=== PATIENT | female | born 1940 | race Caucasian/White ===

== ENCOUNTER 2017-01-20 06:07 | Inpatient (IN) ==
[2017-01-20] MEDS ORDERED: Lidocaine -MPF 1% 2 ML VIAL ID ONE (06:27)
[2017-01-20] MEDS ORDERED: Ringers Solution, Lactated 1,000 ML IVC SCH (06:30)
--- NOTE | 2017-01-20 07:20 | Anesthesia Evaluation PreOp ---
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 Any Significant HX Other Medical History: Denies Any Significant HX, Other (Metabolic syndrome) Anesthesia History: No Prior Anesthetic Complications, Past Anesthesia (GB) : No Alcohol Use: none Drug use: none Medications and Allergies ALPRAZolam [Xanax 1 MG Tablet] 1 mg PO HS 09/19/15 [History] Lovastatin 40 mg PO DAILY 09/19/15 [History] Metoprolol [Lopressor] 25 mg PO BID 09/19/15 [History] hydroCHLOROthiazide [Hydrochlorothiazide] 25 mg PO DAILY 09/19/15 [History] Azithromycin [Zithromax] 250 mg PO Q24H #5 tablet 04/30/16 [Rx] Cefuroxime PO [Ceftin] 500 mg PO Q12HR #10 tablet 04/30/16 [Rx] HYDROcodone/Acet 5/325 mg [[place] 5-325 mg] 1 tab PO Q4H PRN #20 tab 04/30/16 [Rx ] Lactobacillus [Culturelle] 1 each PO BID #10 cap.sprink 04/30/16 [Rx] Loratadine [Claritin] 10 mg PO DAILY PRN #0 04/30/16 [Rx] Allergies codeine Allergy (Verified 09/19/15 11:55) Palpitations - Meds/Allergy Pre-op Review Medications Reviewed: Yes Allergies Reviewed: Yes Beta Blockers on Current Med List: Yes If Beta Blockers taken, Date/Time (Last Dose taken): 05:45 01/20/2017 Anesthesia Results - Labs Laboratory Tests 04/28/16 10/12/16 01/14/17 11:06 08:22 09:57 WBC 7.1 Hgb 14.3 Hct 43.0 Plt Count 264 INR 1.2 Sodium Potassium Chloride Carbon Dioxide BUN 22 H Creatinine 0.79 01/14/17 09:57 WBC Hgb Hct Plt Count INR Sodium 141 Potassium 3.9 Chloride 101 Carbon Dioxide 34 H BUN Creatinine - Imaging EKG: image reviewed (SR, OLAMIDE) Anesthesia Exam O2 Sat Height 1.57 m Weight 60.781 kg O2 Sat by Pulse Oximetry 96 Vital Signs Temp Pulse Resp BP Pulse Ox 97.4 F L 57 16 103/63 96 01/20/17 06:44 01/20/17 06:44 01/20/17 06:44 01/20/17 06:44 01/20/17 06:44 Height: 5'2'' Weight: 134# NPO (# of Hours): > 8 hrs Pain Scale: 0 Pain Scale Used: Numeric (1 - 10) - HEENT Pupil (Motor): Pupils equal, EOMI Mallampati: II Teeth: Edentulous Denture Type: Upper: Complete, Lower: Complete Oral Opening: Greater than 3 - HYDROGEN PLANT OPERATOR LOC: Oriented HYDROGEN PLANT OPERATOR Motor: Normal RUE, Normal LUE, Normal RLE, Normal LLE, Normal Face HYDROGEN PLANT OPERATOR Sensory: Normal: RUE, LUE, RLE, LLE, Face - Cardiac Rhythm: Regular Murmur: None JVD: No Carotid Bruit: No - Pulmonary Breath Sounds: bilateral Clear Respiratory Effort: Symmetrical Anesthesia Assess/Plan ASA Score: 2 Modified Vashti Scale for Level of Consciousness: Cooperative, oriented, and tranquil Anesthetic Plan: General Autologous Blood: Yes Monitoring Plan: Standard Monitors Recovery Plan: PACU
[2017-01-20] MEDS ORDERED: *HR* FentaNYL (PF) 100 MCG/2 ML VIAL ONE (07:23)
[2017-01-20] MEDS ORDERED: *HR* Midazolam HCl 2 MG/2 ML VIAL ONE (07:23)
[2017-01-20] MEDS ORDERED: *HR* Succinylcholine 200 MG/10 ML VIAL IVP ONE (07:23)
[2017-01-20] MEDS ORDERED: Lidocaine -MPF 2% 2 ML VIAL ONE (07:23)
[2017-01-20] MEDS ORDERED: Neostigmine Methylsulfate 3 MG/3 ML SYRINGE ONE (07:23)
[2017-01-20] MEDS ORDERED: *HR* Propofol 200 MG/20 ML VIAL IVP ONE (07:23)
[2017-01-20] MEDS ORDERED: *HR* Phenylephrine 10 MG/ML VIAL ONE (07:23)
[2017-01-20] MEDS ORDERED: Ondansetron 4 MG/2 ML VIAL ONE ×2 (07:23→12:55)
[2017-01-20] MEDS ORDERED: Dexamethasone 4 MG/ML VIAL ONE ×2 (07:23→12:55)
[2017-01-20] MEDS ORDERED: Ketorolac 30 MG/ML VIAL ONE (07:23)
[2017-01-20] MEDS ORDERED: Lidocaine -MPF 4% 5 ML AMPUL ONE (07:23)
[2017-01-20] MEDS ORDERED: *HR* Rocuronium Bromide 50 MG/5 ML VIAL ONE ×2 (07:23→12:55)
[2017-01-20] MEDS ORDERED: Lidocaine/EPI 1:100k 1% 50 ML VIAL INFILT ONE (07:30)
[2017-01-20] MEDS ORDERED: Bupivacaine/EPI 1:200k 0.5%PF 30 ML VIAL ONE (07:30)
[2017-01-20] MEDS ORDERED: Lidocaine/EPI 1:200k 1% PF 10 ML VIAL ONE ×2 (07:48→08:17)
--- NOTE | 2017-01-20 07:51 | History & Physical Report ---
Date of Encounter: 01/20/17 Time of Encounter: 07:50 24 Hour HP Update - Instructions Instructions: If the History and Physical is less than 30 days old and was completed prior to A.M. admission and or procedure and has NOT been updated on calendar day of procedure please complete this update prior to performing procedure. - Update Patient reports changes in Medical Condition: No Changes in examination, assessment, or condition: No Changes in Medication: No Preop tests/diagnostics Reviewed: Yes Surgery Remains Indicated: Yes Consent for Planned Operative Procedure(s) Verified: Yes - Pre-Operative Checklist Preoperative Checklist Indicated: Yes Prophylactic Antibiotic Ordered: Yes Home Medications Include Beta Emily: Yes Beta Emily Taken Today (Day of Surgery): Yes Beta Emily Taken Yesterday (Day Prior to Surgery): Yes Is VTE Prophylaxis Indicated?: Yes
[2017-01-20] MEDS: CeFAZolin Pre 2,000 MG/100 ML 2,000 MG/100 ML BAG IVPB ONE ×2 (07:58→12:00)
[2017-01-20] MEDS ORDERED: EPHEDrine 50 MG/ML VIAL ONE ×2 (08:10→15:46)
[2017-01-20] MEDS ORDERED: *HR* Promethazine 25 MG/ML VIAL IVP PRN (08:33)
[2017-01-20] MEDS ORDERED: *HR* HYDROmorphone (PF) 1 MG/ML SYRINGE IVP PRN (08:33)
[2017-01-20] MEDS ORDERED: *HR* HYDROmorphone 2 MG/ML SYRINGE ONE ×2 (08:43→15:09)
--- NOTE | 2017-01-20 15:16 | Operative Note ---
Date of procedure: 01/20/17 Pre-op diagnosis: Right ureteral reimplant Post-op diagnosis: same Procedure: Right ureteral reimplantation. Implants: 19 [place] Nando drain. 6 [place] by 24 cm double-J stent. Henry catheter. Complications: none Anesthesia: BAILEEA Surgeon: Bar Sutton Estimated blood loss (cc): 200 Specimen: right distal ureter Condition: stable Disposition: PACU Procedure in Detail: Indications: Ms. Enriquez is a 76-year-old woman who underwent a hysterectomy today. During the surgery there is concern for ureteral injury. Dr. Ramírez was first available and entered the operating room. He performed a cystoscopy and bilateral retrograde pyelogram. There was no extravasation seen along the left ureter. However, the right ureter showed evidence of extravasation with inability to pass an open-ended catheter. With this an emergent right ureteral reimplantation was performed. This was an emergency surgery and therefore informed consent was not able to be obtained. The family was notified. Procedure in detail: Mrs. Enriquez was already anesthetized on the operating room table. Her abdomen was prepped and draped in usual sterile fashion. A lower midline incision was then made. The subcutaneous tissues were dissected down using large cautery. The fascia was identified and incised with the cautery. A finger was placed underneath the fascia and the fascia was opened down to the pubic symphysis. The peritoneum was identified and grasped with DeBakey forceps. It was then opened purposefully using Metzenbaum scissors. There was no evidence of bowel injury below. The peritoneum was opened fully. The Bookwalter retractor was inserted and the bowel was packed into the upper abdomen to expose the pelvis. The peritoneum was then opened where the previous dissection was performed. The ureter was identified below the peritoneum and was distended with urine. It was dissected down distally until its cut edge was identified. This was completely transected. The ureter was then freed up and retracted superiorly. The gonadal vessels were identified and dissected away from the ureter. The distal ureter was cut freshly using the Mehta scissors. The ureter was then spatulated. The bladder was then distended. Along the dome of the bladder stay sutures were applied using 2-0 Vicryl suture. The peritoneum over top of the dome of the bladder was then opened using cautery and I dissected down to the urothelium. The urothelium was opened. Stay sutures were placed using 5-0 Vicryl into the apices of the cystotomy. The ureter was then sewed down to the bladder using interrupted 5-0 Vicryl suture. A 6 Bolivian by 24 cm double-J stent was placed. The muscle was draped over top of the ureter with interrupted 4-0 Vicryl sutures after the anastomosis was completed. The peritoneum over top of the dowm of the bladder was sewn back together using interrupted 2-0 Vicryl suture. The bladder was distended. There is no evidence of leak. A 19 [place] Nando drain was placed into the right lower quadrant through a prior laparoscopy port. This was sewn to the skin using a 2-0 nylon suture. The fascia was then closed using a looped PDS in a running fashion. The abdomen was irrigated. The skin was closed using anju. Dry sterile dressing was applied. Ms. Enriquez was then awakened from general anesthesia by the [facility] condition. All sponge, needle, and instrument counts were correct.
--- NOTE | 2017-01-20 17:15 | Anesthesia Evaluation Post Op ---
Date of Encounter: 01/20/17 Time of Encounter: 17:14 - Vital Signs Vital Signs: Vital Signs/O2 Sat, Most Current Temp Pulse Resp BP Pulse Ox 97.0 F L 50 10 117/66 98 01/20/17 16:40 01/20/17 17:00 01/20/17 17:00 01/20/17 17:00 01/20/17 17:00 - Lungs Lungs: Clear Ascult./Percussion - Airway Airway: Non-obstructed - Cardiovascular Regular Rate - Mental Status Mental Status: Alert & Oriented, Answers Appropriately - Pain Pain Scale: 4 Pain Scale used: Numeric (1 - 10) - Nausea Vomiting Nausea Vomiting: Not Present - Hydration Hydration: NPO, Henry catheter - Discharge PostOp Status: Transfer Patient to floor
[2017-01-20] MEDS ORDERED: Loratadine 10 MG TABLET PO PRN (17:45)
[2017-01-20] MEDS ORDERED: Naloxone 0.4 MG/ML INJ IVP PRN (17:45)
[2017-01-20] MEDS ORDERED: *HR* HYDROmorphone 2 MG/ML SYRINGE IVP PRN (17:45)
[2017-01-20] MEDS ORDERED: Ondansetron 4 MG/2 ML VIAL IVP PRN (17:45)
[2017-01-20] MEDS ORDERED: ALPRAZolam 1 MG TABLET PO PRN (17:45)
--- NOTE | 2017-01-20 18:20 | OB/GYN Procedure Note ---
Hysterectomy - Diagnosis Date of procedure: 01/20/17 Hysterectomy pre-op: chronic pelvic pain, stress incontinence, symptomatic leiomyomata Post-op diagnosis: same - Procedure Hysterectomy procedure: lap assisted vaginal hysterectomy, bilateral salpingo- oophorectomy, other (Tvt with perforation of left bladder, transection of right ureter, with reimplantation) Surgeon: Gentry Harmon Coil Assembler: Lisa Knox Anesthesia Type: General Estimated blood loss (cc): 200 Complications: none Fluids: crystalloid Specimens: right ovary, uterus, cervix, left ovary, right fallopian tube, left fallopian tube, myoma Findings: Enlarged fibroid uterus Disposition: PACU Narrative: Patient is 76-year-old female with large pelvic fibroid uterus and stress urine incontinence. She presents for laparoscopic-assisted vaginal hysterectomy and tension-free vaginal taping. She is aware of operative risks including possible risk of injury to bowel bladder or other internal organs such as ureters and signed appropriate consent. Description of procedure: Patient was taken operating room where general anesthesia was administered. She was prepped and draped in usual sterile fashion bladder was drained of clear urine. She was placed in low dorsal lithotomy position. 60 mL of dilute local were injected behind the symphysis pubis just to the left and right the midline. Mid urethral portion of the anterior vaginal wall was identified and 60 mL of dilute local were injected along the submucosal region minus symphysis pubis in the left and right. 2 stab wounds were made in the abdominal injection sites. Made a small incision along the anterior vaginal wall at the mid urethral site and dissected under the submucosal regions up behind the symphysis pubis on the left and right. Placing a 30 mL balloon with guidewire patient's bladder was deflected towards her left side. Using a gloved hand in the vagina introduced the advantage fit tension-free vaginal taping needle through the suburethral incision brought out the right lower quadrant incision. I then deflected the patient's bladder towards her right side that looked in the vagina introduced the needle through the suburethral incision brought up to the floor quadrant incision. Catheter was removed cystoscopy was performed and it was noted that the tension-free needle was through the lateral portion of the bladder. The needle was removed and the bladder was drained. I deflected the patient's bladder again towards her right side and again the tension-free of vaginal tape needle was introduced through the suburethral incision brought up to the left lower quadrant incision. Catheter was again removed cystoscopy was performed and there was no evidence of further bladder trauma. Ureteral jets were noted bilaterally. This point we proceeded with the hysterectomy. Scalpel was used to make a small incision to the umbilicus. A 5 mm trochars introduced and patient was placed in Trendelenburg position. A 5 mm trochars placed in the left midline and another 5 mm trochars placed to the right and midline. Uterus was visualized and was noted to be enlarged with fibroid extending off the right aspect of the uterus. The ovaries were small vascular suture to the ovaries from the infundibulopelvic ligament was somewhat dilated. The left fallopian tube was pulled towards the midline in the left infundibulopelvic ligament was transected with LigaSure. Then transected the round ligament on the left side with LigaSure the broad ligament was skeletonized anteriorly and posteriorly and the uterine vessels were cauterized with LigaSure. I developed the bladder flap on the lower uterine segment. I then pulled the right fallopian tubes towards the right in the infundibulopelvic ligament was cauterized and transected the ureters appeared to be out of the operative field. I then used a ligature across the into the round ligament on the right. The right broad ligament was skeletonized anteriorly and posteriorly and the uterine vessels were cauterized. This point willing to the vaginal portion of the procedure. The cervix was injected with 1% lidocaine circumferentially and circumferential incision was made. Anterior the anterior and posterior cul-de-sac sharply. Curved Venu clamps are taken crust uterosacral ligaments on each side these were transected and ligated with 0 Vicryl suture. Curved Venu clamps were then taken across the lower cardinal ligaments on each side these 2 were transected and ligated with 0 Vicryl suture. Cervix was pulled down over the uterus was quite enlarged. Cervix and fibroid on the lower uterine segment more morcellated and a was then able to remove the fundus left fallopian tube and left ovary and right ovary. There is no evidence of internal bleeding. Vaginal cuff was run with 0 Vicryl in a running lock stitch. Anterior and posterior vaginal cuffs were then reapproximated with 0 Vicryl running lock stitch. Hemostasis was ensured. Again performed cystoscopy at this point I did appear to see some urine flow by could not directly see the ureteral jets. 10 mL of indigo carmine were injected and again I cannot see any flow. At this point a consult with urology and performed retrograde pyelograms did show patent left ureter but showed obstruction of right ureter. Noted was, normal by urology that the ureteral orifices were not somewhat abnormal location up on the bladder neck. At this point after Dr. Ramírez performed the pyelograms Dr. Sutton proceeded to perform the reimplantation of the right ureter with david cystotomy. It was advised that because we would have to reposition the the bladder that the TVT needles be removed and they were removed. I did assist Dr. Sutton and performing his portion of the procedure. Please see his operative note for details on this part of the procedure. Atenolol procedure all sponge needle and instrument counts are correct.
[2017-01-20] MEDS: Ringers Solution, Lactated 1,000 ML IVC SCH ×3 (19:48→22:33)
[2017-01-20] MEDS ORDERED: Metoprolol 100 MG TABLET PO SCH (21:00)
[2017-01-21 00:31] LABS: Basophils % 0.1 %; Hematocrit 39.5 % (35.3-44.9); Hemoglobin 13.3 g/dL (11.5-15.4); Immature Granulocytes % 0.3 % (0-4); Lymphocytes # 1.3 K/mcL (0.6-4.6); Lymphocytes % 6.8 %; Mean Corpuscular HGB Conc 33.7 g/dL (31.6-35.5); Mean Corpuscular Hemoglobin 30.5 pg (28.0-33.3); Mean Corpuscular Volume 90.6 fL (83.0-100.0); Mean Platelet Volume 10.6 fL (9.4-12.4); Monocytes # 1.4 K/mcL (0.0-1.3); Monocytes % 7.1 %; Neutrophils # 16.5 K/mcL (1.6-8.9); Nucleated Red Blood Cells 0.1 /100 WBC (0); Platelet Count 309 K/mcL (140-400); Red Blood Count 4.36 M/mcL (3.82-4.97); Red Cell Distribution Width 12.7 % (11.5-14.5); Segmented Neutrophils % 85.7 %
[2017-01-21] MEDS ORDERED: Furosemide 20 MG/2 ML VIAL IVP ONE ×2 (01:33→04:53)
[2017-01-21] MEDS: Ringers Solution, Lactated 1,000 ML IVC SCH (02:14)
[2017-01-21] MEDS: Famotidine 20 MG TABLET PO SCH ×3 (05:48→21:12)
[2017-01-21 06:05] LABS: BUN/Creatinine Ratio 21 (6-26); Blood Urea Nitrogen 22 mg/dL (7-20); Calcium 8.4 mg/dL (8.6-10.8); Carbon Dioxide 29 mEq/L (19-29); Chloride 100 mEq/L (98-109); Glucose 128 mg/dL (70-99); Osmolality,Calculated 283 (280-300); Potassium 4.1 mEq/L (3.5-4.5); Sodium 134 mEq/L (136-145); eGFR For African Americans > 60 (> 60); eGFR For Non-African Americans 51 (> 60)
[2017-01-21] MEDS: *HR* HYDROcodone/Acet 5/325 mg TABLET PO PRN ×4 (08:12→21:12)
--- NOTE | 2017-01-21 08:33 | Urology Progress Note ---
Date of Encounter: 01/21/17 Time of Encounter: 08:30 - Assessment and Plan (1) Right ureteral injury Current Visit: Yes Status: Acute Assessment and plan: 76-year-old woman status post hysterectomy with resulting right ureteral injury and right ureteral reimplantation. Postoperative day #1. Her urine output has been low overnight. JAMAAL output was 102 mL overnight. I will send the JAMAAL for creatinine. I will check a KUB today to confirm that the stent is in good position. I will also check a renal and bladder ultrasound to identify for any evidence of hydronephrosis. I think that she is likely third spacing given the length of the surgery yesterday. Her urine output does seem to be improving over the last hour. Continue with IV fluids. Clear liquids are okay for now. We' ll continue the Henry catheter and JAMAAL drain. Qualifiers: Qualified Code(s): S37.10XA - Unspecified injury of ureter, initial encounter Progress Note Narrative: Postoperative day #1 status post hysterectomy with iatrogenic right ureteral injury and right ureteral reimplant. She was oliguric overnight. Her pain has been adequately controlled. Her JAMAAL output was 102 mL overnight. She reports passing flatus. Her urine output appears to be improving in the last 1-2 hours. Objective Initial Vital Signs Temp Pulse Resp BP Pulse Ox 97.4 F L 57 16 103/63 96 01/20/17 06:44 01/20/17 06:44 01/20/17 06:44 01/20/17 06:44 01/20/17 06:44 - General physical appearance Present: well developed, well nourished, no distress - Respiratory Present: normal respiratory effort - Abdomen Present: soft (Incision dressing with shadowing. JAMAAL with serosanguionous fluid. ) - Genitourinary Present: normal external genitalia Urine Appearance: Present: Hematuria (Light pink urine) - Labs 01/21/17 00:25 01/21/17 05:25 Diabetes panel 01/21/17 Range/Units 05:25 Sodium 134 L (136-145) mEq/L Potassium 4.1 (3.5-4.5) mEq/L Chloride 100 (98-109) mEq/L Carbon Dioxide 29 (19-29) mEq/L BUN 22 H (7-20) mg/dL Creatinine 1.05 (0.57-1.11) mg/dL Glucose 128 H (70-99) mg/dL Calcium 8.4 L (8.6-10.8) mg/dL Calcium panel 01/21/17 Range/Units 05:25 Calcium 8.4 L (8.6-10.8) mg/dL Pituitary panel 01/21/17 Range/Units 05:25 Sodium 134 L (136-145) mEq/L Potassium 4.1 (3.5-4.5) mEq/L Chloride 100 (98-109) mEq/L Carbon Dioxide 29 (19-29) mEq/L BUN 22 H (7-20) mg/dL Creatinine 1.05 (0.57-1.11) mg/dL Glucose 128 H (70-99) mg/dL Calcium 8.4 L (8.6-10.8) mg/dL Adrenal panel 01/21/17 Range/Units 05:25 Sodium 134 L (136-145) mEq/L Potassium 4.1 (3.5-4.5) mEq/L Chloride 100 (98-109) mEq/L Carbon Dioxide 29 (19-29) mEq/L BUN 22 H (7-20) mg/dL Creatinine 1.05 (0.57-1.11) mg/dL Glucose 128 H (70-99) mg/dL Calcium 8.4 L (8.6-10.8) mg/dL - VTE Documentation of Mechanical Device: Intermittent pneumatic compression device Consult Discharge Plan - Plan Referrals: Fang Brown MD [Primary Care Provider] -
--- NOTE | 2017-01-21 09:11 | OB/GYN Progress Note ---
Date of Encounter: 01/21/17 Time of Encounter: 09:09 - Assessment and Plan (1) Status post laparoscopic assisted vaginal hysterectomy Current Visit: Yes Status: Acute Patient's postop day 1 status post a prescription assisted vaginal hysterectomy and TVT with iatrogenic ureteral injury requiring neocystostomy and removal TVT mesh. She overall looks good however did have some what low urine output overnight that is picking up this morning. She has responded to increased IV fluid bolus and Lasix with improved urine output this morning. It was her labs did and clinically she looks good. This point we will leave catheter and JAMAAL drain in place. Dr. Sutton is following. (2) Low urine output Current Visit: Yes Status: Acute Seems to be responding to fluid bolus and Lasix. Patient did have quite long surgery yesterday and may have third space some the fluid. Dr. Sutton is checking the JAMAAL drain creatinine and plans KUB to check stent placement. Subjective - Subjective Principal diagnosis: POD # 1 s/p LAVH with Iatrogeni rt ureteral injury with resultant neocystot Interval history: Patient overall looks good today with minimal pain and was taking oral liquids without nausea and vomiting. She does report small amount of flatus. Has been concern of decreased urine output overnight that has picked up this morning. She does have a fair amount of serosanguineous JAMAAL drainage. Objective - Vital Signs Vital Signs: Vital Signs Temp Pulse Resp BP Pulse Ox 01/21/17 08:00 97.9 F 68 16 91/47 96 01/21/17 04:30 98 F 72 20 88/51 96 01/21/17 01:30 98.2 F 82 20 94/56 93 01/20/17 23:37 98.4 F 82 18 93/53 92 01/20/17 20:45 98.3 F 68 14 115/63 96 01/20/17 19:36 99.2 F 64 22 115/63 95 01/20/17 18:15 97.2 F L 59 16 129/71 99 01/20/17 17:45 97.2 F L 56 16 115/64 99 01/20/17 17:20 57 12 128/77 98 01/20/17 17:10 98.8 F 56 12 114/79 98 01/20/17 17:00 50 10 117/66 98 01/20/17 16:50 50 9 115/66 100 01/20/17 16:40 97.0 F L 51 10 127/64 100 01/20/17 16:30 52 10 131/65 100 01/20/17 16:20 52 10 146/73 100 01/20/17 16:10 96.4 F L 61 10 153/72 98 Intake and Output 01/20/17 01/21/17 01/21/17 23:59 07:59 15:59 Intake Total 1100 / 1100 2000 / 2000 550 / 550 Output Total 240 / 240 160 / 160 145 / 145 Balance 860 / 860 1840 / 1840 405 / 405 Intake: IV Fluids 1100 / 1100 1400 / 1400 Lactated Ringers 1,000 ML 1100 / 1100 1400 / 1400 @ 150 mls/hr IVC .[id number] [facility] Rx#:[id number] Oral 600 / 600 550 / 550 Output: Urine Urethral (Henry) Catheter 125 / 125 44 / 44 145 / 145 Wound Drainage 85 / 85 102 / 102 Right Abdomen 85 / 85 102 / 102 Other: Weight 66.2 kg Patient Weight 01/21/17 23:59 Weight 66.2 kg - Exam Auscultation: bilateral: crackles/rales (Bibasilar) Abdomen: Present: soft, other (Appropriate tenderness, Dressen's and tacked there is some staining on the right side likely runoff from the JAMAAL drain) - Labs Labs: Abnormal lab results WBC 19.2 K/mcL (4.3-11.1) H D 01/21/17 00:25 Neutrophils # 16.5 K/mcL (1.6-8.9) H 01/21/17 00:25 Monocytes # 1.4 K/mcL (0.0-1.3) H 01/21/17 00:25 Nucleated RBCs/100 WBC 0.1 /100 WBC (0) H 01/21/17 00:25 Sodium 134 mEq/L (136-145) L 01/21/17 05:25 BUN 22 mg/dL (7-20) H 01/21/17 05:25 Est GFR (Non-Af Amer) 51 (> 60) L 01/21/17 05:25 Glucose 128 mg/dL (70-99) H 01/21/17 05:25 Calcium 8.4 mg/dL (8.6-10.8) L 01/21/17 05:25
--- NOTE | 2017-01-21 12:42 | Operative Note ---
Date of procedure: 01/20/17 Pre-op diagnosis: possbile ureteral injufy Post-op diagnosis: other (right ureteral injury) Procedure: cystoscopy. Bilateral retrograde pyelograms Anesthesia: GETA Surgeon: Evaristo Ramírez Estimated blood loss (cc): 0 Condition: stable Disposition: PACU Procedure in Detail: On my arrival to the room the patient was already intubated and in dorsal lithotomy. we moved the patient down on the table to allow for c -arm and retrograde pyelograms. The patient had 3 lap ports were still in place. TVT sling had been passed and the trochars were removed but the sling was not completely pulled into position. A 21-[place] rigid cystoscope was inserted into the bladder without difficulty. Systematic examination of bladder revealed moderate trabeculations. Some erythematous areas but a grossly intact bladder. Identified the right ureteral orifice first. I had difficulty injecting contrast and was able to pass a zip wire through the 5 [place] but had significant medial deviation. Once the retrograde pyelogram was performed there was obvious extravasation of contrast and no continuation of contrast into the proximal ureter beyond 3 or 4 cm. This was public service representative of ureteral injury. The left ureteral orifice was cannulated using the 5-[place] ureteral Catheter and a retrograde pyelogram was performed using Isovue. No injury, hydroureter or other abnormality was noted. The catheter was replaced at this time and the case was turned over to Dr. Sutton and Dr. Harmon for surgical repair of the injury. I removed the TVT sling and packed the vagina because I felt mesh would increase risk for complications
[2017-01-21] MEDS: ALPRAZolam 1 MG TABLET PO PRN (21:14)
[2017-01-22] MEDS: Ringers Solution, Lactated 1,000 ML IVC SCH (02:21)
[2017-01-22 04:27] LABS: Hematocrit 31.7 % (35.3-44.9); Mean Corpuscular HGB Conc 32.8 g/dL (31.6-35.5); Mean Corpuscular Hemoglobin 30.4 pg (28.0-33.3); Mean Corpuscular Volume 92.7 fL (83.0-100.0); Mean Platelet Volume 10.9 fL (9.4-12.4); Platelet Count 206 K/mcL (140-400); Red Blood Count 3.42 M/mcL (3.82-4.97); Red Cell Distribution Width 13.1 % (11.5-14.5)
[2017-01-22 04:29] LABS: Hemoglobin 10.4 g/dL (11.5-15.4)
[2017-01-22 04:46] LABS: BUN/Creatinine Ratio 22 (6-26); Blood Urea Nitrogen 17 mg/dL (7-20); Calcium 7.9 mg/dL (8.6-10.8); Carbon Dioxide 30 mEq/L (19-29); Chloride 97 mEq/L (98-109); Glucose 100 mg/dL (70-99); Osmolality,Calculated 278 (280-300); Sodium 133 mEq/L (136-145); eGFR For African Americans > 60 (> 60); eGFR For Non-African Americans > 60 (> 60)
[2017-01-22 04:58] LABS: Potassium 3.2 mEq/L (3.5-4.5)
[2017-01-22] MEDS ORDERED: Potassium Effervescent 25 MEQ TABLET.EFF PO ONE (07:23)
--- NOTE | 2017-01-22 07:26 | OB/GYN Progress Note ---
Date of Encounter: 01/22/17 Time of Encounter: 07:24 - Assessment and Plan (1) Status post laparoscopic assisted vaginal hysterectomy Current Visit: Yes Status: Acute Patient's postop day 1 status post a prescription assisted vaginal hysterectomy and TVT with iatrogenic ureteral injury requiring neocystostomy and removal TVT mesh. She overall looks good however did have some what low urine output overnight that is picking up this morning. She has responded to increased IV fluid bolus and Lasix with improved urine output this morning. It was her labs did and clinically she looks good. This point we will leave catheter and JAMAAL drain in place. Dr. Sutton is following. 01/22- Doing well, pt seen with Dr Sutton. He plans to d/c ambriz today. Drain with minimal drainage, will likely d/c prior to d/c home. (2) Low urine output Current Visit: Yes Status: Acute Seems to be responding to fluid bolus and Lasix. Patient did have quite long surgery yesterday and may have third space some the fluid. Dr. Sutton is checking the JAMAAL drain creatinine and plans KUB to check stent placement. 01/22- resoloved, taking PO welll will p-lock IV (3) Hypokalemia Current Visit: No Status: Resolved Will give 50 of k-dur Subjective - Subjective Principal diagnosis: s/p hysterectomy and bso with rt ureteral injury and reimplantation Interval history: Doing well with good pain control. Drinking water but states not much appetite b/c of heartburn. No n/v. Objective - Vital Signs Vital Signs: Vital Signs Temp Pulse Resp BP Pulse Ox 01/22/17 04:28 92 01/22/17 03:05 98.5 F 68 18 98/54 95 01/21/17 23:25 98.6 F 72 18 96/54 96 01/21/17 20:00 98.3 F 70 18 120/56 95 01/21/17 17:45 99.4 F 74 16 137/67 95 01/21/17 12:30 98.6 F 68 16 104/49 98 01/21/17 08:00 97.9 F 68 16 91/47 96 Intake and Output 01/21/17 01/21/17 01/22/17 15:59 23:59 07:59 Intake Total 550 / 550 300 / 300 Output Total 745 / 745 710 / 710 1015 / 1015 Balance -195 / -195 -710 / -710 -715 / -715 Intake: Oral 550 / 550 300 / 300 Output: Catheter 745 / 745 575 / 575 1000 / 1000 Wound Drainage 135 / 135 15 / 15 Right Abdomen 135 / 135 - Exam Auscultation: bilateral: normal Abdomen: Present: soft, other (pos BS) Comments: Incision dry, appropriate abdominal tenderness - Labs Labs: Abnormal lab results WBC 13.7 K/mcL (4.3-11.1) H 01/22/17 03:48 RBC 3.42 M/mcL (3.82-4.97) L 01/22/17 03:48 Hgb 10.4 g/dL (11.5-15.4) L D 01/22/17 03:48 Hct 31.7 % (35.3-44.9) L 01/22/17 03:48 Neutrophils # 16.5 K/mcL (1.6-8.9) H 01/21/17 00:25 Monocytes # 1.4 K/mcL (0.0-1.3) H 01/21/17 00:25 Nucleated RBCs/100 WBC 0.1 /100 WBC (0) H 01/21/17 00:25 Sodium 133 mEq/L (136-145) L 01/22/17 03:48 Potassium 3.2 mEq/L (3.5-4.5) L 01/22/17 03:48 Chloride 97 mEq/L (98-109) L 01/22/17 03:48 Carbon Dioxide 30 mEq/L (19-29) H 01/22/17 03:48 Glucose 100 mg/dL (70-99) H 01/22/17 03:48 Calculated Osmolality 278 (280-300) L 01/22/17 03:48 Calcium 7.9 mg/dL (8.6-10.8) L 01/22/17 03:48
--- NOTE | 2017-01-22 07:50 | Urology Progress Note ---
Date of Encounter: 01/22/17 Time of Encounter: 07:48 - Assessment and Plan (1) Right ureteral injury Current Visit: Yes Status: Acute Assessment and plan: POD #2 s/p right ureteral reimplantation. 1. d/c ambriz today. 2. Continue JAMAAL for now. 3. Will monitor JAMAAL output and consider repeat JAMAAL creatinine if output increases. Qualifiers: Qualified Code(s): S37.10XA - Unspecified injury of ureter, initial encounter Progress Note Narrative: Postoperative day #2 status post right ureteral reimplantation. KUB yesterday showed good placement of her right ureteral stent. Ultrasound was reviewed which showed moderate hydronephrosis. Kidney function is normal. Urine output has improved. Objective Initial Vital Signs Temp Pulse Resp BP Pulse Ox 97.4 F L 57 16 103/63 96 01/20/17 06:44 01/20/17 06:44 01/20/17 06:44 01/20/17 06:44 01/20/17 06:44 - General physical appearance Present: well developed, well nourished, no distress - Respiratory Present: normal respiratory effort - Abdomen Present: soft, tender (appropriately tender, nd, JAMAAL is serous and scant.) - Genitourinary Present: normal external genitalia Urine Appearance: Present: Clear (Clear to light pink.) - Labs 01/22/17 03:48 01/22/17 03:48 Diabetes panel 01/22/17 Range/Units 03:48 Sodium 133 L (136-145) mEq/L Potassium 3.2 L (3.5-4.5) mEq/L Chloride 97 L (98-109) mEq/L Carbon Dioxide 30 H (19-29) mEq/L BUN 17 (7-20) mg/dL Creatinine 0.76 (0.57-1.11) mg/dL Glucose 100 H (70-99) mg/dL Calcium 7.9 L (8.6-10.8) mg/dL Calcium panel 01/22/17 Range/Units 03:48 Calcium 7.9 L (8.6-10.8) mg/dL Pituitary panel 01/22/17 Range/Units 03:48 Sodium 133 L (136-145) mEq/L Potassium 3.2 L (3.5-4.5) mEq/L Chloride 97 L (98-109) mEq/L Carbon Dioxide 30 H (19-29) mEq/L BUN 17 (7-20) mg/dL Creatinine 0.76 (0.57-1.11) mg/dL Glucose 100 H (70-99) mg/dL Calcium 7.9 L (8.6-10.8) mg/dL Adrenal panel 01/22/17 Range/Units 03:48 Sodium 133 L (136-145) mEq/L Potassium 3.2 L (3.5-4.5) mEq/L Chloride 97 L (98-109) mEq/L Carbon Dioxide 30 H (19-29) mEq/L BUN 17 (7-20) mg/dL Creatinine 0.76 (0.57-1.11) mg/dL Glucose 100 H (70-99) mg/dL Calcium 7.9 L (8.6-10.8) mg/dL - VTE Documentation of Mechanical Device: Intermittent pneumatic compression device Consult Discharge Plan - Plan Referrals: Fang Brown MD [Primary Care Provider] -
[2017-01-22] MEDS: *HR* HYDROcodone/Acet 5/325 mg TABLET PO PRN ×4 (07:56→21:23)
[2017-01-22] MEDS: Famotidine 20 MG TABLET PO SCH ×2 (07:56→20:32)
[2017-01-22] MEDS: ALPRAZolam 1 MG TABLET PO PRN (20:37)
[2017-01-23] MEDS: *HR* HYDROcodone/Acet 5/325 mg TABLET PO PRN (06:30)
[2017-01-23 06:41] LABS: Basophils # 0.1 K/mcL (0.0-0.2); Basophils % 0.5 %; Eosinophils # 0.2 K/mcL (0.0-0.6); Eosinophils % 1.4 %; Hematocrit 32.6 % (35.3-44.9); Hemoglobin 10.7 g/dL (11.5-15.4); Immature Granulocytes % 0.3 % (0-4); Lymphocytes # 1.7 K/mcL (0.6-4.6); Mean Corpuscular HGB Conc 32.8 g/dL (31.6-35.5); Mean Corpuscular Hemoglobin 30.7 pg (28.0-33.3); Mean Corpuscular Volume 93.7 fL (83.0-100.0); Mean Platelet Volume 10.4 fL (9.4-12.4); Monocytes # 0.9 K/mcL (0.0-1.3); Monocytes % 7.9 %; Neutrophils # 8.7 K/mcL (1.6-8.9); Platelet Count 202 K/mcL (140-400); Red Blood Count 3.48 M/mcL (3.82-4.97); Red Cell Distribution Width 13.2 % (11.5-14.5); Segmented Neutrophils % 74.9 %
[2017-01-23 06:48] LABS: BUN/Creatinine Ratio 15 (6-26); Blood Urea Nitrogen 9 mg/dL (7-20); Calcium 8.6 mg/dL (8.6-10.8); Carbon Dioxide 38 mEq/L (19-29); Chloride 100 mEq/L (98-109); Glucose 99 mg/dL (70-99); Osmolality,Calculated 291 (280-300); Potassium 3.6 mEq/L (3.5-4.5); eGFR For African Americans > 60 (> 60); eGFR For Non-African Americans > 60 (> 60)
[2017-01-23 06:50] LABS: Sodium 141 mEq/L (136-145)
[2017-01-23] MEDS: Famotidine 20 MG TABLET PO SCH (08:16)
[2017-01-23 08:41] VITALS: BP 133/69
[2017-01-23 08:41] LABS: ABG Base Excess 14.1 mEq/L (-2.0 to 3.0); ABG HCO3 40.3 mEQ/L (21-27); ABG Oxygen Saturation 95 % (95-98); ABG PCO2 58 mmHg (35-45); ABG PH 7.45 pH Units (7.32-7.45); ABG PO2 72 mmHg (85-104); ABG TCO2 42.1 mEq/L (20-26); Blood Gas FiO2 28 %; Blood Gas Liter Flow 2 L/MIN
--- NOTE | 2017-01-23 09:09 | Urology Progress Note ---
Date of Encounter: 01/23/17 Time of Encounter: 09:07 - Assessment and Plan (1) Right ureteral injury Current Visit: Yes Status: Acute Assessment and plan: s/p right ureteral reimplantation. POD #3. 1. JAMAAL removed today. 2. will follow along. Qualifiers: Qualified Code(s): S37.10XA - Unspecified injury of ureter, initial encounter Progress Note Narrative: POD #3 s/p right ureteral reimplantation. Doing well. JAMAAL creatinine yesterday after catheter was removed was 0.6. She is voiding well. Objective Initial Vital Signs Temp Pulse Resp BP Pulse Ox 97.4 F L 57 16 103/63 96 01/20/17 06:44 01/20/17 06:44 01/20/17 06:44 01/20/17 06:44 01/20/17 06:44 - General physical appearance Present: well developed, well nourished, no distress - Respiratory Present: normal respiratory effort - Abdomen Present: soft (inc - c,d, i. JAMAAL serosanguinous.) - Labs 01/23/17 06:21 01/23/17 06:21 Diabetes panel 01/23/17 Range/Units 06:21 Sodium 141 D (136-145) mEq/L Potassium 3.6 (3.5-4.5) mEq/L Chloride 100 (98-109) mEq/L Carbon Dioxide 38 H (19-29) mEq/L BUN 9 (7-20) mg/dL Creatinine 0.60 (0.57-1.11) mg/dL Glucose 99 (70-99) mg/dL Calcium 8.6 (8.6-10.8) mg/dL Calcium panel 01/23/17 Range/Units 06:21 Calcium 8.6 (8.6-10.8) mg/dL Pituitary panel 01/23/17 Range/Units 06:21 Sodium 141 D (136-145) mEq/L Potassium 3.6 (3.5-4.5) mEq/L Chloride 100 (98-109) mEq/L Carbon Dioxide 38 H (19-29) mEq/L BUN 9 (7-20) mg/dL Creatinine 0.60 (0.57-1.11) mg/dL Glucose 99 (70-99) mg/dL Calcium 8.6 (8.6-10.8) mg/dL Adrenal panel 01/23/17 Range/Units 06:21 Sodium 141 D (136-145) mEq/L Potassium 3.6 (3.5-4.5) mEq/L Chloride 100 (98-109) mEq/L Carbon Dioxide 38 H (19-29) mEq/L BUN 9 (7-20) mg/dL Creatinine 0.60 (0.57-1.11) mg/dL Glucose 99 (70-99) mg/dL Calcium 8.6 (8.6-10.8) mg/dL - VTE Documentation of Mechanical Device: Intermittent pneumatic compression device Consult Discharge Plan - Plan Referrals: Fang Brown MD [Primary Care Provider] -
--- NOTE | 2017-01-23 10:07 | OB/GYN Progress Note ---
Date of Encounter: 01/23/17 Time of Encounter: 10:05 - Assessment and Plan (1) Status post laparoscopic assisted vaginal hysterectomy Current Visit: Yes Status: Acute Patient's postop day 1 status post a prescription assisted vaginal hysterectomy and TVT with iatrogenic ureteral injury requiring neocystostomy and removal TVT mesh. She overall looks good however did have some what low urine output overnight that is picking up this morning. She has responded to increased IV fluid bolus and Lasix with improved urine output this morning. It was her labs did and clinically she looks good. This point we will leave catheter and JAMAAL drain in place. Dr. Sutton is following. 01/22- Doing well, pt seen with Dr Sutton. He plans to d/c ambriz today. Drain with minimal drainage, will likely d/c prior to d/c home. (2) Low urine output Current Visit: Yes Status: Acute Seems to be responding to fluid bolus and Lasix. Patient did have quite long surgery yesterday and may have third space some the fluid. Dr. Sutton is checking the JAMAAL drain creatinine and plans KUB to check stent placement. 01/22- resoloved, taking PO welll will p-lock IV (3) Hypokalemia Current Visit: No Status: Resolved Will give 50 of k-dur Subjective - Subjective Principal diagnosis: s/p hysterectomy and bso with ureteral injury with repair Interval history: Pt with regular diet without difficulty. + flatus. Voiding without difficulty , Urine is clear, JAMAAL out. C/o some dyspnea with ambulation. Objective - Vital Signs Vital Signs: Vital Signs Temp Pulse Resp BP Pulse Ox 01/23/17 08:15 98.3 F 88 18 133/69 92 01/23/17 04:08 98.1 F 88 16 128/61 93 01/23/17 00:13 16 98 01/22/17 23:59 97.6 F 87 16 118/61 96 01/22/17 20:30 97.6 F 89 16 130/52 97 01/22/17 15:49 98.0 F 79 16 94/56 95 01/22/17 12:15 98.1 F 78 16 146/63 92 Intake and Output 01/22/17 01/23/17 01/23/17 23:59 07:59 15:59 Output Total 1225 / 1225 270 / 270 Balance -1225 / -1225 -270 / -270 Output: Urine 1100 / 1100 270 / 270 Wound Drainage 125 / 125 Right Abdomen 125 / 125 Other: Weight 64.1 kg - Exam Auscultation: bilateral: crackles/rales (bibasilar rales) Abdomen: Present: soft - Labs Labs: Abnormal lab results WBC 11.6 K/mcL (4.3-11.1) H 01/23/17 06:21 RBC 3.48 M/mcL (3.82-4.97) L 01/23/17 06:21 Hgb 10.7 g/dL (11.5-15.4) L 01/23/17 06:21 Hct 32.6 % (35.3-44.9) L 01/23/17 06:21 Nucleated RBCs/100 WBC 0.1 /100 WBC (0) H 01/21/17 00:25 ABG pCO2 58 mmHg (35-45) H 01/23/17 08:37 ABG pO2 72 mmHg (85-104) L 01/23/17 08:37 ABG HCO3 40.3 mEQ/L (21-27) H 01/23/17 08:37 ABG Total CO2 42.1 mEq/L (20-26) H 01/23/17 08:37 ABG Base Excess 14.1 mEq/L (-2.0 to 3.0) H 01/23/17 08:37 Carbon Dioxide 38 mEq/L (19-29) H 01/23/17 06:21
--- NOTE | 2017-01-23 10:13 | Discharge Summary ---
Date of Encounter: 01/23/17 Time of Encounter: 10:17 - Discharge Diagnosis (1) Status post laparoscopic assisted vaginal hysterectomy Priority: Primary Status: Acute Comments: Pt s/p LAVH/BSO with incidental left ureteral injury. Doing well from surgical standpoint. Catheter out and voiding well, pt to have stent removed by Dr. Sutton in 8 weeks (2) Low urine output Priority: Secondary Status: Resolved (3) Hypokalemia Priority: Secondary Status: Resolved (4) Hypoxia Priority: Secondary Status: Acute Comments: Pt has been noted to have low oxygen sats during hospitlization. She has h/o smoking, but not current smoker. We took pt off of oxygen today and pt quickly desaturated to less to 88%. Pt had ABG on 2 liter oxygen showing hypoxemia. CXR was essentially normal. Will consult for home oxygen. If this can be arranged will d/c home. - Discharge Medications Prescriptions: HYDROcodone/Acet 5/325 mg [[place] 5-325 mg] 1 tab PO Q4HR PRN #40 tab PRN Reason: post op pain Ibuprofen [Motrin] 600 mg PO Q6HR PRN #40 tab PRN Reason: post op pain Home Medications: ALPRAZolam [Xanax 1 MG Tablet] 1 mg PO HS PRN 09/19/15 [History] Lovastatin 40 mg PO DAILY 09/19/15 [History] Loratadine [Claritin] 10 mg PO DAILY PRN #0 04/30/16 [Rx] Calcium Carbonate/Vitamin D3 [Calcium 500 + Vit D Caplet] 1 each PO BID [History] Lisinopril/Hydrochlorothiazide [Zestoretic 20-25 mg Tablet] 1 each PO DAILY 08/07 [History] Metoprolol [Lopressor] 100 mg PO BID 01/20/17 [History] Montelukast [Singulair] 10 mg PO HS 01/20/17 [History] Multivit with Calcium,Iron,Min [One Daily Women's] 1 tab PO DAILY 01/20/17 [ History] Paroxetine HCl [Paxil] 40 mg PO DAILY 01/20/17 [History] Potassium Chloride [Klor-Con 10] 10 meq PO DAILY 01/20/17 [History] Trospium Chloride 20 mg PO BID 01/20/17 [History] HYDROcodone/Acet 5/325 mg [[place] 5-325 mg] 1 tab PO Q4HR PRN #40 tab 01/23/17 [ Rx] Ibuprofen [Motrin] 600 mg PO Q6HR PRN #40 tab 01/23/17 [Rx] Allergies/Adverse Reactions: Allergies codeine Allergy (Verified 01/20/17 07:27) Palpitations Data Procedures and tests throughout hospitalization: Laboratory Tests 01/21/17 01/21/17 01/21/17 00:25 05:25 15:45 WBC 19.2 H D RBC 4.36 Hgb 13.3 Hct 39.5 MCV 90.6 MCH 30.5 MCHC 33.7 RDW 12.7 Plt Count 309 MPV 10.6 Immature Gran % 0.3 Seg Neutrophils % 85.7 Lymphocytes % 6.8 Monocytes % 7.1 Eosinophils % 0.0 Basophils % 0.1 Neutrophils # 16.5 H Lymphocytes # 1.3 Monocytes # 1.4 H Eosinophils # 0.0 Basophils # 0.0 Nucleated RBCs/100 WBC 0.1 H ABG pH ABG pCO2 ABG pO2 ABG HCO3 ABG Total CO2 ABG O2 Saturation ABG Base Excess Liter Flow Blood Gas Modality Inspired O2 Sodium 134 L Potassium 4.1 Chloride 100 Carbon Dioxide 29 BUN 22 H Creatinine 1.05 Est GFR ( Amer) > 60 Est GFR (Non-Af Amer) 51 L BUN/Creatinine Ratio 21 Glucose 128 H Calculated Osmolality 283 Calcium 8.4 L Fluid Creatinine 0.89 01/22/17 01/22/17 01/22/17 03:48 03:48 18:00 WBC 13.7 H RBC 3.42 L Hgb 10.4 L D Hct 31.7 L MCV 92.7 MCH 30.4 MCHC 32.8 RDW 13.1 Plt Count 206 MPV 10.9 Immature Gran % Seg Neutrophils % Lymphocytes % Monocytes % Eosinophils % Basophils % Neutrophils # Lymphocytes # Monocytes # Eosinophils # Basophils # Nucleated RBCs/100 WBC ABG pH ABG pCO2 ABG pO2 ABG HCO3 ABG Total CO2 ABG O2 Saturation ABG Base Excess Liter Flow Blood Gas Modality Inspired O2 Sodium 133 L Potassium 3.2 L Chloride 97 L Carbon Dioxide 30 H BUN 17 Creatinine 0.76 Est GFR ( Amer) > 60 Est GFR (Non-Af Amer) > 60 BUN/Creatinine Ratio 22 Glucose 100 H Calculated Osmolality 278 L Calcium 7.9 L Fluid Creatinine 0.60 01/23/17 01/23/17 01/23/17 06:21 06:21 08:37 WBC 11.6 H RBC 3.48 L Hgb 10.7 L Hct 32.6 L MCV 93.7 MCH 30.7 MCHC 32.8 RDW 13.2 Plt Count 202 MPV 10.4 Immature Gran % 0.3 Seg Neutrophils % 74.9 Lymphocytes % 15.0 Monocytes % 7.9 Eosinophils % 1.4 Basophils % 0.5 Neutrophils # 8.7 Lymphocytes # 1.7 Monocytes # 0.9 Eosinophils # 0.2 Basophils # 0.1 Nucleated RBCs/100 WBC ABG pH 7.45 ABG pCO2 58 H ABG pO2 72 L ABG HCO3 40.3 H ABG Total CO2 42.1 H ABG O2 Saturation 95 ABG Base Excess 14.1 H Liter Flow 2 Blood Gas Modality [place] Inspired O2 28 Sodium 141 D Potassium 3.6 Chloride 100 Carbon Dioxide 38 H BUN 9 Creatinine 0.60 Est GFR ( Amer) > 60 Est GFR (Non-Af Amer) > 60 BUN/Creatinine Ratio 15 Glucose 99 Calculated Osmolality 291 Calcium 8.6 Fluid Creatinine Labs on day of discharge: Labs from last 24 hours 01/23/17 01/23/17 01/23/17 08:37 06:21 06:21 WBC 11.6 H RBC 3.48 L Hgb 10.7 L Hct 32.6 L MCV 93.7 MCH 30.7 MCHC 32.8 RDW 13.2 Plt Count 202 MPV 10.4 Immature Gran % 0.3 Seg Neutrophils % 74.9 Lymphocytes % 15.0 Monocytes % 7.9 Eosinophils % 1.4 Basophils % 0.5 Neutrophils # 8.7 Lymphocytes # 1.7 Monocytes # 0.9 Eosinophils # 0.2 Basophils # 0.1 ABG pH 7.45 ABG pCO2 58 H ABG pO2 72 L ABG HCO3 40.3 H ABG Total CO2 42.1 H ABG O2 Saturation 95 ABG Base Excess 14.1 H Liter Flow 2 Blood Gas Modality [place] Inspired O2 28 Sodium 141 D Potassium 3.6 Chloride 100 Carbon Dioxide 38 H BUN 9 Creatinine 0.60 Est GFR ( Amer) > 60 Est GFR (Non-Af Amer) > 60 BUN/Creatinine Ratio 15 Glucose 99 Calculated Osmolality 291 Calcium 8.6 Fluid Creatinine 01/22/17 18:00 WBC RBC Hgb Hct MCV MCH MCHC RDW Plt Count MPV Immature Gran % Seg Neutrophils % Lymphocytes % Monocytes % Eosinophils % Basophils % Neutrophils # Lymphocytes # Monocytes # Eosinophils # Basophils # ABG pH ABG pCO2 ABG pO2 ABG HCO3 ABG Total CO2 ABG O2 Saturation ABG Base Excess Liter Flow Blood Gas Modality Inspired O2 Sodium Potassium Chloride Carbon Dioxide BUN Creatinine Est GFR ( Amer) Est GFR (Non-Af Amer) BUN/Creatinine Ratio Glucose Calculated Osmolality Calcium Fluid Creatinine 0.60 - Impressions ITS Impressions Retrograde Pyelogram 01/20/17 00:00 IMPRESSION: Intraprocedural fluoroscopic spot images as above. See separate procedure report for more information. D/ / Clayton Leyva MD / Clayton Leyva MD Interpreting Provider: Clayton Leyva MD X-Ray 01/21/17 08:33 IMPRESSION: Right double-J ureteral stent in place. D/ / 01/21/2017 09:12:58 Dirk Mcclendon MD / amena Interpreting Provider: Dirk Mcclendon MD Retroperitoneum Ultrasound 01/21/17 13:30 IMPRESSION: Moderate right hydronephrosis in the presence of stent. Functionality of the stent is questioned. No significant left hydronephrosis. D/ / Arnie Brito MD / Arnie Brito MD Interpreting Provider: Arnie Brito MD Chest X-Ray 01/23/17 08:24 IMPRESSION: 1. Trace bilateral effusions with basilar atelectasis. D/ / 01/23/2017 09:06:41 Galilea Mcfadden MD / amena Interpreting Provider: Galilea Mcfadden MD 01/23/17- Doing well from surgical standpoint, taking po well without n/v, + flatus, voiding clear urine. Comfortable at rest but has dyspnea with exertion. States at home she becomes sob with ambulation. Date of admission: 01/21/17 14:55 Primary care physician: Fang Brown - Patient Status Disposition: Home, Self-Care Condition: Good Functional capacity at discharge: independent ambulation Overall status at discharge: patient is progressing back to baseline - Discharge Instructions Follow Up With: Fang Brown MD [Primary Care Provider] - Gentry Harmon MD [Partnered Physician] - Additional Instructions: Pt to f/u in 1 week for staple removal. She should f/u with me in 2 weeks and pcp for f/u repiratory status Hospital Course DISPATCH SUPERVISOR Time Attestation: Total time spent providing and/or coordinating discharge services: Exam - Constitutional Vitals: Temp Pulse Resp BP Pulse Ox 98.3 F 88 18 133/69 88 01/23/17 08:15 01/23/17 08:15 01/23/17 08:15 01/23/17 08:15 01/23/17 10:05 General appearance IM: A&O X 3 - Respiratory Additional comments: rales in bilat bases, otherwise CTA - Cardiovascular Cardiovascular exam IM: Present: RRR - GI/Abdominal GI/Abdominal exam IM: normal bowel sounds Incision: normal, intact - Extremities Exam Extremities exam IM: Present: full ROM - Neurological Exam Neurological exam: oriented X3 - VTE Documentation of Mechanical Device: Intermittent pneumatic compression device
== END 2017-01-23 13:40 | disposition home or self-care (01) | DRG 742 ==
LOC: SAMDAY 06:07 → 1NENUOBS 17:55
PROVIDERS: ADMIT Obstetrics & Gynecology; ATTEND Obstetrics & Gynecology
PROC: GYNLAVH (ICD-10-PCS; 2017-01-20 07:45)